=== PATIENT | male | born 1975 | race Caucasian/White ===

== ENCOUNTER 2018-09-10 10:20 | Day surgery (SDC) | payer OTHER ==
[~2018-09-10] VITALS: Ht 188 cm; Wt 78.5 kg
--- NOTE | 2018-09-10 08:00 | NUR ---
Ambulatory in Day Surgery History, Chart, Medications and Allergies reviewed before start of procedure.Lungs clear T/O to Auscultation. Patient confirms NPO status and agrees with scheduled surgery. Patient reports completing Chlorhexadine shower X2 prior to admission to hospital.Patient States Post-Procedure ride home has been arranged. Surgical site prepped with 2% Chlorhexidine cloth wipe.
--- NOTE | 2018-09-10 11:03 | NUR ---
09/10/18 1103 Letha Ayoub PT CAME TO US FROM [facility] AT [address] ALVAREZ. PT WAS ASSISTED TO A BED AND WARM BLANKETS PROVIDED. PT WAS FULLY PREPPED AT [facility]. PT HAD IV PLACED, PAS STOCKINGS ON, OP SITE PREPPED BY RN AT [facility]. RN PROVIDED TEACHING R/T THE PROCEDURE AND DISCHARGE INSTRUCTIONS. PT TAKEN TO OR BY [facility]. REPORT GIVEN TO [facility]UNCIONAD.
--- NOTE | 2018-09-10 12:26 | NUR ---
09/10/18 1226 Meg Taylor PT SHIVERING, WARM BLANKETS APPLIED, DENIED PAIN AND NAUSEA.
--- NOTE | 2018-09-10 13:08 | NUR ---
09/10/18 1307 Meg Taylor AT 1255 PT WAS MEDICATED PER REQUEST THEY STATED THEY HAVE AN HOURS DRIVE HOME AND WILL NEED TO GET RX FILLED. NORCO 5/325MG X1 TAB. PT DID DENY PAIN AT THE TIME HE WAS MEDICATED. DENIED NAUSEA AT THE TIME WELL. TOLERATING WATER AND SALTINE CRACKERS AND IS AT HIS SIDE
== END 2018-09-10 14:00 | disposition home or self-care (01) ==
LOC: ORSCSDS 10:20 → ORSCMMR 10:20 → ORD 10:30 → ORSCMMR 10:30 → ORSCSDS 10:40
PROVIDERS: Surgery
PROC: 0YU50JZ Supplement Right Inguinal Region with Synthetic Substitute, Open Approach (ICD-10-PCS; principal; 2018-09-10 12:30)
DX: K40.90 Unilateral inguinal hernia, without obstruction or gangrene, not specified as recurrent (principal)
CPT/HCPCS: C1781; J0690; J1100; J1885; J2250; J2405; J3010; J7120